=== PATIENT | male | born 1935 | race Hispanic/Latino ===

== ENCOUNTER 2017-05-30 11:43 | Emergency (ER) | payer MEDICARE ==
[~2017-05-30] VITALS: Ht 170.2 cm; Wt 61.7 kg
[~2017-05-30 11:43] MED LIST: FLOMAX0.4 MG PO; LEVAQUIN500 MG PO; LOSARTAN-HCTZ1 EACH PO
[2017-05-30] MEDS ORDERED: CLONIDINE HCL 0.1 MG TAB PO ONE (12:00)
--- NOTE | 2017-05-30 12:30 | Diagnostic Imaging Report ---
EXAMINATION: CHEST 2 VIEWS INDICATION: Cough. COMPARISON: None FINDINGS: TUBES and LINES: None. LUNGS: Mild perihilar, peribronchial thickening and perihilar streaky densities. Vertical band of density in the lower anterior chest abutting the right hemidiaphragm on the lateral view may represent platelike atelectasis. There is no evidence of pneumonia or pulmonary edema. PLEURA: No pleural effusion or pneumothorax. HEART AND MEDIASTINUM: The cardiac silhouette is mildly enlarged. Mild calcifications of the aortic arch. BONES AND SOFT TISSUES: No acute osseous lesion. Soft tissues are unremarkable. UPPER ABDOMEN: No free air under the diaphragm. IMPRESSION: No acute thoracic abnormality. Findings may reflect a mild viral infection versus reactive airway disease. No consolidation. Right basilar platelike atelectasis. Signed by: Dr. Mojgan Martinez M.D. on 05/30/2017 12:26 PM
[2017-05-30] MEDS ORDERED: DEXAMETHASONE SOD PHOS 10 MG/1 ML VIAL INJ ONE (13:00)
[2017-05-30 13:16] VITALS: BP 155/77
== END 2017-05-30 13:39 | disposition home or self-care (01) ==
LOC: ER 11:43
DX: J20.9 Acute bronchitis, unspecified (principal); I10 Essential (primary) hypertension; J84.10 Pulmonary fibrosis, unspecified; N40.0 Benign prostatic hyperplasia without lower urinary tract symptoms
CPT/HCPCS: 71046; 87400; 93005; 99283; J1100

== ENCOUNTER 2017-06-19 16:37 | Emergency (ER) | payer MEDICARE ==
[~2017-06-19] VITALS: Ht 170.2 cm; Wt 61.7 kg
--- OUTSIDE RECORDS SUMMARY | 2017-06-19 16:40 | XMS REPORT ---
Author Author [facility] Address Unknown Phone Unavailable Care Team Providers Care Digital Service Engineer Name Role Phone SAVAGE SCHULZ Unavailable Unavailable Problems This patient has no known problems. Allergies, Adverse Reactions, Alerts This patient has no known allergies or adverse reactions. Medications This patient has no known medications. Results Test Description Test Time Test Comments Text Results Atomic Results Result Comments CHEST 2 VIEWS [place] [address] Patient Name: LAILA MARTÍNEZ MR #: [id number] : 1935 Age/Sex: 82/M Req #: [id number] Adm Physician: Ordered by: SAVAGE SCHULZ MD Report #: [id number] Location: ER Room/Bed: Procedure: [id number] DX/CHEST 2 VIEWS Exam Date: 05/30/17 Exam Time: 1210 REPORT STATUS: Signed EXAMINATION: CHEST 2 VIEWS INDICATION: Cough. COMPARISON: None FINDINGS: TUBES and LINES : None. LUNGS: Mild perihilar, peribronchial thickening and perihilar streaky densities. Vertical band of density in the lower anterior chest abutting the right hemidiaphragm on the lateral view may represent platelike atelectasis. There is no evidence of pneumonia or pulmonary edema. PLEURA : No pleural effusion or pneumothorax. HEART AND MEDIASTINUM: The cardiac silhouette is mildly enlarged. Mild calcifications of the aortic arch. BONES AND SOFT TISSUES: No acute osseous lesion. Soft tissues are unremarkable. UPPER ABDOMEN: No free air under the diaphragm. IMPRESSION: No acute thoracic abnormality. Findings may reflect a mild viral infection versus reactive airway disease. No consolidation. Right basilar platelike atelectasis. Signed by: Dr. Mojgan Burgess M.D. on 05/30/2017 12:26 PM Dictated By: BIANCA BURGESS MD, MD 1226 Transcribed By: JOSEPH on 1226 COPY TO: SAVAGE SCHULZ MD
[2017-06-19] MEDS ORDERED: MECLIZINE HCL 12.5 MG TAB PO ONE (17:00)
--- NOTE | 2017-06-19 17:29 | Diagnostic Imaging Report ---
Exam: Head CT without contrast History: Dizziness Comparison studies: None Technique: Axial images were obtained from the skull base to the vertex. Coronal and sagittal images reconstructed from the axial data. Intravenous contrast: None Findings: Scalp: No abnormalities. Bones: No fractures, blastic or lytic lesions. Brain sulci: Mildly prominent. Ventricles: Mild compensatory dilatation No hydrocephalus. Extra-axial spaces: No masses, no fluid collection. Parenchyma: No mass, acute hemorrhage or acute cortical vascular insults. Incidental punctate calcification along the angular gyrus of the right inferior parietal lobe without surrounding edema or mass effect compatible with sequela of nonspecific previous infection/inflammation. Incidental physiologic calcifications in the globi pallidi. Sellar/suprasellar region: No abnormalities. Craniocervical junction: Patent foramen magnum. No Chiari one malformation. Incidental findings: Atherosclerotic calcifications in the carotid siphons and left intradural vertebral artery. IMPRESSION: 1. No acute intracranial abnormalities. 2. Mild generalized volume loss. Signed by: Dr. Rafita Shin M.D. on 06/19/2017 5:25 PM
[2017-06-19 17:37] LABS: BASOPHILS % 0.7 % (0.0-1.0); EOSINOPHILS # (AUTO) 0.1 (0.0-0.4); EOSINOPHILS % 1.5 % (0.0-6.0); HEMATOCRIT 36.8 % (38.2-49.6); HEMOGLOBIN 12.5 g/dL (14.0-18.0); LYMPHOCYTES # (AUTO) 1.2 (1.0-3.2); LYMPHOCYTES % 30.1 % (18.0-39.1); MEAN CORPUSCULAR HEMOGLOBIN 31.1 pg (28-32); MEAN CORPUSCULAR VOLUME 91.5 fL (81-99); MONOCYTES # (AUTO) 0.4 (0.2-0.8); MONOCYTES % 10.5 % (4.4-11.3); NEUTROPHILS # (AUTO) 2.3 (2.1-6.9); NEUTROPHILS % 57.2 % (38.7-80.0); PLATELET COUNT 161 x10e3/uL (140-360); RED BLOOD COUNT 4.02 x10e6/uL (4.3-5.7); RED CELL DISTRIBUTION WIDTH 13.2 % (11.7-14.4)
[2017-06-19 17:46] LABS: PROTHROMBIN TIME 12.4 seconds (11.9-14.5)
[2017-06-19 17:54] LABS: ALANINE AMINOTRANSFERASE 10 IU/L (0-55); ALBUMIN 4.3 g/dL (3.5-5.0); ALBUMIN/GLOBULIN RATIO 1.4 (0.8-2.0); ALKALINE PHOSPHATASE 81 IU/L (40-150); ANION GAP 13.2 mmol/L (8-16); BLOOD UREA NITROGEN 11 mg/dL (7-26); BUN/CREATININE RATIO 9 (6-25); CALCIUM 9.2 mg/dL (8.4-10.2); CARBON DIOXIDE 28 mmol/L (22-29); CHLORIDE 97 mmol/L (98-107); CREATINE KINASE 78 IU/L (30-200); CREATININE, SERUM 1.17 mg/dL (0.72-1.25); EST GLOMERULAR FILTRATION RATE 60 ML/MIN (60-); GLUCOSE 97 mg/dL (74-118); MAGNESIUM 1.9 MG/DL (1.3-2.1); POTASSIUM 4.2 mmol/L (3.5-5.1); SODIUM 134 mmol/L (136-145)
--- NOTE | 2017-06-19 17:56 | Diagnostic Imaging Report ---
EXAMINATION: CHEST 2 VIEWS INDICATION: \S\dizziness \[id number] \S\1700 \S\Y COMPARISON: 05/30/2017 FINDINGS: PA and lateral views TUBES and LINES: None. LUNGS: Lungs are well inflated. Lungs are clear. There is no evidence of pneumonia or pulmonary edema. PLEURA: No pleural effusion or pneumothorax. HEART AND MEDIASTINUM: The cardiomediastinal silhouette is unremarkable. BONES AND SOFT TISSUES: Generalized demineralization. No acute osseous lesion. Soft tissues are unremarkable. UPPER ABDOMEN: No free air under the diaphragm. IMPRESSION: No acute thoracic abnormality. Signed by: Dr. Deep Jackson MD on 06/19/2017 5:52 PM
== END 2017-06-19 18:41 | disposition home or self-care (01) ==
LOC: ER 16:37
DX: R42 Dizziness and giddiness (principal); I10 Essential (primary) hypertension; Z87.09 Personal history of other diseases of the respiratory system
CPT/HCPCS: 36415; 70450; 71046; 80053; 82550; 82553; 83735; 83880; 84484; 85025; 85610; 85730; 93005; 99284

== ENCOUNTER 2017-07-07 12:22 | Emergency (ER) | payer MEDICARE ==
[~2017-07-07] VITALS: Ht 170.2 cm; Wt 61.7 kg
--- OUTSIDE RECORDS SUMMARY | 2017-07-07 12:25 | XMS REPORT | Continuity of Care Document ---
Author Author [facility] Organization [facility] Address [address] [place] [address] Phone Unavailable Care Team Providers Care Physical Instructor Name Role Phone NAI WADE PCP Insurance Providers Guarantor Tai Martínez Address [address] [place] [address] Email PTDECLINED Payer [employer] Medicare Replacement Policy Number [id number] Subscriber's Name Tai Martínez Relationship 18 Self / Same As Patient Effective Date 99 Advance Directives Directive Response Recorded Date/Time Does the patient have an advance directive? No 11/17/16 5:16pm If yes, is advance directive on file with [facility]? No 11/17/16 5:16pm If not on file with [facility] will patient provide a copy? No 11/17/16 5:16pm Do you have a Directive to Physician? No 06/19/17 6:03pm Do you have a Medical Power of Locomotive Supervisor? No 06/19/17 6:03pm Do you have an out of hospital Do Not Resuscitate Order? No 06/19/17 6:03pm Do you have any special needs we should be aware of? No 06/19/17 6:03pm Do you have a support person here with you today? Yes 06/19/17 6:03pm Did patient receive Notice of Privacy Practices? Yes 06/19/17 6:03pm Did patient receive patient rights and responsibilities? Yes 06/19/17 6:03pm Problems No problem information available. Medications Current Home Medications Medication Dose Units Route Directions Days Qty Instructions Start Date Levofloxacin (Levaquin) 500 Mg Tablet 500 Mg Oral Daily Losartan/Hydrochlorothiazide (Losartan-Hctz 50-12.5 Mg Tab) 1 Each Tablet 50 Mg Oral Daily Tamsulosin Hcl (Flomax*) 0.4 Mg Cap 0.4 Mg Oral Daily 30 Cap Social History No social history information available. Hospital Discharge Instructions No hospital discharge instruction information available. Plan of Care Discharge Date 06/19/17 6:41pm Disposition HOME, SELF-CARE Condition at Discharge Stable Instructions/Education Provided Dizziness Vertigo Prescriptions See Medication Section Referrals NAI WADE Order Date: Call for an appointment Address: [id number] [place] [address] Additional Instructions/Education DC Instructions: Take the prescribed medication as directed. Follow up with your PCP or referral physician listed, call next business day to schedule your follow-up appointment. Return to the ER for any shortness of breath, chest pain, abdominal pain,increased pain to injured extremity or any new concerns. Functional Status No functional status information available. Allergies, Adverse Reactions, Alerts No known allergies. Immunizations No immunization information available. Vital Signs Acute Vital Signs Vital Response Date/Time Pulse Pulse Rate (adult) 53 bpm (60 - 90) 05/30/2017 1:16pm Respiratory Rate 18 bpm (12 - 24) 05/30/2017 1:16pm Blood Pressure 155/77 mm Hg 05/30/2017 1:16pm Height 5 ft 7 in 06/19/2017 4:42pm Weight 136 lb 06/19/2017 4:42pm Body Mass Index 21.3 kg/m^2 06/19/2017 4:42pm Results Laboratory Results Test Name Result Units Flags Reference Collection Date/Time Result Date/ Time Comments Urine Color YELLOW YELLOW 11/17/2016 4:15pm 11/17/2016 5:24pm Urine Clarity CLEAR CLEAR 11/17/2016 4:15pm 11/17/2016 5:24pm Urine Specific [place] 1.015 1.010-1.025 11/17/2016 4:15pm 2016 5:24pm Urine pH 7 5 - 7 11/17/2016 4:15pm 11/17/2016 5:24pm Urine Leukocyte Esterase NEGATIVE NEGATIVE 11/17/2016 4:15pm 2016 5:24pm Urine Nitrite NEGATIVE NEGATIVE 11/17/2016 4:15pm 11/17/2016 5:24pm Urine Protein NEGATIVE NEGATIVE 11/17/2016 4:15pm 11/17/2016 5:24pm Urine Glucose (UA) NEGATIVE NEGATIVE 11/17/2016 4:15pm 11/17/2016 5: 24pm Urine Ketones NEGATIVE NEGATIVE 11/17/2016 4:15pm 11/17/2016 5:24pm Urine Urobilinogen 0.2 mg/dL 0.2 - 1 11/17/2016 4:15pm 11/17/2016 5: 24pm Urine Bilirubin NEGATIVE NEGATIVE 11/17/2016 4:15pm 11/17/2016 5: 24pm Urine Blood NEGATIVE NEGATIVE 11/17/2016 4:15pm 11/17/2016 5:24pm Urine WBC 0-5 /HPF 0-5 11/17/2016 4:15pm 11/17/2016 5:37pm Urine RBC 0-5 /HPF 0-5 11/17/2016 4:15pm 11/17/2016 5:37pm Urine Bacteria NONE /HPF NONE 11/17/2016 4:15pm 11/17/2016 5:37pm Urine Epithelial Cells NONE /LPF NONE 11/17/2016 4:15pm 11/17/2016 5: 37pm Influenza Virus Types A,B Antigen NEGATIVE NEGATIVE 05/30/2017 11: 47am 05/30/2017 12:42pm White Blood Count 4.08 x10e3/uL L 4.8-10.8 06/19/2017 5:25pm 06/19/2017 5:38pm Red Blood Count 4.02 x10e6/uL L 4.3-5.7 06/19/2017 5:25pm 06/19/2017 5: 38pm Hemoglobin 12.5 g/dL L 14.0-18.0 06/19/2017 5:25pm 06/19/2017 5:38pm Hematocrit 36.8 % L 38.2-49.6 06/19/2017 5:25pm 06/19/2017 5:38pm Mean Corpuscular Volume 91.5 fL 81-99 06/19/2017 5:2506/19/2017 5: 38pm Mean Corpuscular Hemoglobin 31.1 pg 28-32 06/19/2017 5:25pm 06/19/2017 5:38pm Mean Corpuscular Hemoglobin Concent 34.0 g/dL 31-35 06/19/2017 5:25pm 06/19/2017 5:38pm Red Cell Distribution Width 13.2 % 11.7-14.4 06/19/2017 5:25pm 2017 5:38pm Platelet Count 161 x10e3/uL 140-360 06/19/2017 5:25pm 06/19/2017 5: 38pm Neutrophils (%) (Auto) 57.2 % 38.7-80.0 06/19/2017 5:25pm 06/19/2017 5: 38pm Lymphocytes (%) (Auto) 30.1 % 18.0-39.1 06/19/2017 5:25pm 06/19/2017 5: 38pm Monocytes (%) (Auto) 10.5 % 4.4-11.3 06/19/2017 5:25pm 06/19/2017 5: 38pm Eosinophils (%) (Auto) 1.5 % 0.0-6.0 06/19/2017 5:pm 06/19/2017 5: 38pm Basophils (%) (Auto) 0.7 % 0.0-1.0 06/19/2017 5:25pm 06/19/2017 5:38pm IM GRANULOCYTES % 0.0 % 0.0-1.0 06/19/2017 5:25pm 06/19/2017 5:38pm Neutrophils # (Auto) 2.3 2.1-6.9 06/19/2017 5:pm 06/19/2017 5:38pm Lymphocytes # (Auto) 1.2 1.0-3.2 06/19/2017 5:25pm 06/19/2017 5:38pm Monocytes # (Auto) 0.4 0.2-0.8 06/19/2017 5:25pm 06/19/2017 5:38pm Eosinophils # (Auto) 0.1 0.0-0.4 06/19/2017 5:25pm 06/19/2017 5:38pm Basophils # (Auto) 0.0 0.0-0.1 06/19/2017 5:25pm 06/19/2017 5:38pm Absolute Immature Granulocyte (auto 0 x10e3/uL 0-0.1 06/19/2017 5:25pm 06/19/2017 5:38pm Prothrombin Time 12.4 seconds 11.9-14.5 06/19/2017 5:25pm 06/19/2017 5: 48pm Prothromb Time International Ratio 1.00 06/19/2017 5:25pm 2017 5:48pm Oral Anticoagulant Therapy INR Values: 1. Low Intensity Therapy 1.5 - 2.0 2. Moderate Intensity Therapy 2.0 - 3.0 3. High Intensity Therapy(1) 2.5 - 3.5 4. High Intensity Therapy(2) 3.0 - 4.0 5. Panic Value INR > 5.0 Activated Partial Thromboplast Time 29.0 seconds 23.8-35.5 06/19/2017 5: 25pm 06/19/2017 5:48pm Sodium Level 134 mmol/L L 136-145 06/19/2017 5:25pm 06/19/2017 5:57pm Potassium Level 4.2 mmol/L 3.5-5.1 06/19/2017 5:25pm 06/19/2017 5:57pm Chloride Level 97 mmol/L L 98-107 06/19/2017 5:25pm 06/19/2017 5:57pm Carbon Dioxide Level 28 mmol/L 22-29 06/19/2017 5:25pm 06/19/2017 5: 57pm Anion Gap 13.2 mmol/L 8-16 06/19/2017 5:25pm 06/19/2017 5:57pm Blood Urea Nitrogen 11 mg/dL 7-06/19/2017 5:25pm 06/19/2017 5:57pm Creatinine 1.17 mg/dL 0.72-1.25 06/19/2017 5:25pm 06/19/2017 5:57pm BUN/Creatinine Ratio 9 6-25 06/19/2017 5:25pm 06/19/2017 5:57pm Estimat Glomerular Filtration Rate 60 ML/MIN 60- 06/19/2017 5:25pm 01/2018 5:57pm Ranges were taken from the National Kidney Disease Education Program and the National Kid[employer] Foundation literature. Reference ranges: 60 or greater: Normal 16-59 (for 3 consecutive months): Chronic kidney disease 15 or less: Kidney failure Glucose Level 97 mg/dL 74-118 06/19/2017 5:25pm 06/19/2017 5:57pm Calcium Level 9.2 mg/dL 8.4-10.2 06/19/2017 5:25pm 06/19/2017 5:57pm Magnesium Level 1.9 MG/DL 1.3-2.1 06/19/2017 5:25pm 06/19/2017 5:57pm Total Bilirubin 0.7 mg/dL 0.2-1.2 06/19/2017 5:25pm 06/19/2017 5:57pm Aspartate Amino Transf (AST/SGOT) 18 IU/L 5-34 06/19/2017 5:25pm 2017 5:57pm Alanine Aminotransferase (ALT/SGPT) 10 IU/L 0-55 06/19/2017 5:25pm 01/2018 5:57pm Total Protein 7.4 g/dL 6.5-8.1 06/19/2017 5:25pm 06/19/2017 5:57pm Albumin 4.3 g/dL 3.5-5.0 06/19/2017 5:25pm 06/19/2017 5:57pm Globulin 3.1 g/dL 2.3-3.5 06/19/2017 5:25pm 06/19/2017 5:57pm Albumin/Globulin Ratio 1.4 0.8-2.0 06/19/2017 5:25pm 06/19/2017 5: 57pm Alkaline Phosphatase 81 IU/L 40-150 06/19/2017 5:25pm 06/19/2017 5: 57pm B-Type Natriuretic Peptide 39.4 pg/mL 0-100 06/19/2017 5:25pm 2017 5:59pm Creatine Kinase 78 IU/L 30-200 06/19/2017 5:25pm 06/19/2017 5:57pm Creatine Kinase MB 1.20 ng/mL 0-5.0 06/19/2017 5:25pm 06/19/2017 6: 02pm Troponin I < 0.001 ng/mL 0-0.300 06/19/2017 5:25pm 06/19/2017 6:02pm Procedures Procedure Status Date Provider(s) Computed tomography of abdomen and pelvis with contrast Active 11/17/16 NINOSKA SOSA MD X-ray of chest, two views Active 05/30/17 SAVAGE SCHULZ MD Computed tomography of brain without radiopaque contrast Active 06/19/17 CHIQUIS JOYCE [employer] X-ray of chest, two views Active 06/19/17 CHIQUIS JOYCE [employer] Encounters Encounter Location Arrival/Admit Date Discharge/Depart Date Attending Provider Departed Emergency Room [facility] 06/19/17 4:37pm 6:41pm GERTRUDIS BARROS MD Departed Emergency Room [facility] 05/30/17 11:43am 05/30 1:39pm SAVAGE SCHULZ MD Departed Emergency Room [facility] 11/17/16 3:48pm 10:40pm GERTRUDIS BARROS MD
== END 2017-07-07 13:26 | disposition left against medical advice (07) ==
LOC: ER 12:22
DX: R42 Dizziness and giddiness (principal)

== ENCOUNTER 2019-02-26 10:11 | Emergency (ER) | payer MEDICARE ==
[~2019-02-26] VITALS: Ht 167.6 cm; Wt 59.6 kg
[2019-02-26] MEDS ORDERED: CEFTRIAXONE SOD 1 GM VIAL IV ONE (10:45)
[2019-02-26] MEDS ORDERED: DEXAMETHASONE SOD PHOS 10 MG/1 ML VIAL IV ONE (10:45)
--- NOTE | 2019-02-26 10:53 | Diagnostic Imaging Report ---
EXAMINATION: PA and lateral views of the chest. COMPARISON: 05/30/2017 CLINICAL HISTORY: Chest pain DISCUSSION: Lungs are well-inflated and without focal airspace consolidation, pleural effusion, or pneumothorax. Hazy opacity at the cardiac apex likely reflects prominent epicardial fat. Tortuous thoracic aorta with atherosclerotic calcification. No overt pulmonary edema. No acute osseous abnormality. IMPRESSION: No acute cardiopulmonary abnormalities. Signed by: Dr. Rafita Montero M.D. on 02/26/2019 10:50 AM
[2019-02-26] MEDS ORDERED: DEXAMETHASONE SOD PHOS 10 MG/1 ML VIAL ONE (11:50)
[2019-02-26] MEDS ORDERED: CEFTRIAXONE SOD 1 GM VIAL ONE (11:50)
[2019-02-26 12:00] VITALS: BP 183/88
== END 2019-02-26 12:10 | disposition home or self-care (01) ==
LOC: FSED 10:11
DX: R05 Cough (principal); J20.9 Acute bronchitis, unspecified; J04.0 Acute laryngitis; I10 Essential (primary) hypertension; J44.9 Chronic obstructive pulmonary disease, unspecified
CPT/HCPCS: 71046; 80053; 82553; 83880; 84484; 85025; 93005; 96374; 96375; 99284; J0696; J1100

== ENCOUNTER 2019-03-03 18:32 | Emergency (ER) | payer MEDICARE ==
[~2019-03-03] VITALS: Ht 170.2 cm; Wt 61.7 kg
[2019-03-03] MEDS ORDERED: ALBUTEROL SULF 0.083% NEB SOLN 3 ML NEB NEB STA (19:16)
--- NOTE | 2019-03-03 19:29 | NUR ---
Entered pt's room to start the IV and draw lab work. Pt. refused the IV stating he just had it done on Wednesday and he presented the paperwork. It was from our facility and I took it to Dr. Rincon and he said that's fine.
[2019-03-03] MEDS ORDERED: ALBUTEROL/IPRATROPIUM 3 ML NEB ONE (20:01)
--- NOTE | 2019-03-03 20:24 | Diagnostic Imaging Report ---
EXAM: CXR 1 [facility] DATE: 03/03/2019 12:00 AM INDICATION: Dizziness ^[id number] ^[id number] COMPARISON: Chest x-ray, 02/26/2019 FINDINGS: Lines and tubes: None Heart size normal. No focal pulmonary opacity, pleural effusion or pneumothorax. Stable mild interstitial prominence in the lower lobes. Upper abdomen unremarkable. No acute bony abnormality. IMPRESSION: No evidence for acute disease. Signed by: Dr. Taj Fowler M.D. on 03/03/2019 8:21 PM
[2019-03-03 21:16] VITALS: BP 156/63
== END 2019-03-03 21:17 | disposition home or self-care (01) ==
LOC: FSED 18:32
DX: R05 Cough (principal); J20.9 Acute bronchitis, unspecified
CPT/HCPCS: 71045; 99283